=== PATIENT | female | born 1965 | race African-American/Black ===

== ENCOUNTER 2017-09-19 06:21 | Inpatient (IN) | payer BC ==
[2017-09-04 09:40] LABS: ABSOLUTE EOSINOPHILS 0.1 thou/uL (0.0-0.7); ABSOLUTE LYMPHOCYTES 1.8 thou/uL (0.8-5.3); ABSOLUTE MONOCYTES 0.4 thou/uL (0.0-1.2); ABSOLUTE NEUTROPHILS 3.2 thou/uL (1.6-8.1); BASOPHILS 0.8 %; EOSINOPHILS 1.8 %; HEMATOCRIT 36.8 % (37.0-47.0); HEMOGLOBIN 12.1 gm/dL (12.0-15.0); LYMPHOCYTES 32.3 %; MCH 27.3 pg (26.0-34.0); MCHC 32.9 g/dL (28.0-37.0); MCV 83.2 fL (80.0-100.0); MONOCYTES 7.3 %; MPV 9.7 fl. (7.2-11.1); NUCLEATED RBCS 0 /100WBC; PLATELET COUNT* 178 thou/uL (150-400); POLYS 57.8 %; RBC 4.43 mil/uL (4.20-5.00); RDW-CV 14.9 % (10.5-14.5); WBC 5.5 thou/uL (4.0-11.0)
[2017-09-04 09:52] LABS: APTT 24.5 Seconds (25.0-31.3); INR 1.1; PROTIME 10.3 Seconds (9.20-11.50)
[2017-09-04 09:55] LABS: ALBUMIN 3.6 g/dL (3.4-5.0); CALCIUM 9.5 mg/dL (8.5-10.1); CREATININE 0.8 mg/dL (0.6-1.3); POTASSIUM 3.6 mmol/L (3.5-5.1); TOTAL BILIRUBIN 0.4 mg/dL (<0.1-1.0); TOTAL PROTEIN 7.6 g/dL (6.4-8.2)
--- NOTE | 2017-09-04 11:26 | EKG ---
[place] [address] ELECTROCARDIOGRAM REPORT Name: BRENDON PRUITT Room: PRE IN [facility]#: [id number] Admission: Attend Phys: Rachel Felix Discharge: Date of : 67 Report #: [id number] THIS REPORT FOR: //name// [facility] Test Date: 2017-09-04 Test Time: 09:34:17 Pat Name: BRENDON PRUITT Department: Room: Gender: F Coconut Boiler: : 1965 Requested By: Chris Hicks Order Number: [id number] Reading : Luis Fernando Peterson Measurements Intervals [place] Rate: 70 P: 67 LA: 171 QRS: 66 QRSD: 89 T: 56 QT: 410 QTc: 443 Interpretive Statements Sinus rhythm Compared to ECG 12/25/2015 16:21:08 No significant changes Electronically Signed On 09-04-2017 11:25:54 CLAY ARTISAN by Luis Fernadno Peterson [email or web address] <ELECTRONICALLY SIGNED> By: Luis Fernando Peterson MD, [facility] 09/04/17 1125 0934 0934 Luis Fernando Peterson MD, [facility] /EPI
[~2017-09-19] VITALS: Ht 157.5 cm; Wt 77.1 kg
--- NOTE | ~2017-09-19 | OP ---
[address] [address] OPERATIVE REPORT Name: BRENDON PRUITT Room: [address]#: [id number] Admission: 09/19/17 Attend Phys: Rachel Felix Discharge: 09/21/17 Date of : 67 Report #: [id number] THIS REPORT FOR: //name// For operative report details, please see the post operative note. By: [address] [place], [place] [address]cal Records Staff BRANDIN /NAKIA
[~2017-09-19 06:21] MED LIST: ACETAMINOPHEN-1 EAC1 PO; ADULT LOW DOSE81 MG PO; AMITRIPTYLINE H10 M3 PO; AMLODIPINE BESYL5 MG PO; ANASTROZOLE1 MG PO; ANECREAM5 GM TP; BACTRIM DS TAB1 EACH PO; BACTROBAN CREAM30 G1 TOP; CATAPRES0.2 MG PO; CLONIDINE0.1 PO; DIOVAN HCT 1601 EAC1; DIOVAN320 MG PO; ELMIRON 100 MG100 M1 PO; HYDROCODONE-AP1 EAC6 PO; IBUPROFEN 800800 M1 PO; KEFLEX500 MG PO; LOPRESSOR50 PO; OXYCODONE HCL 55 MG PO; PERCOCET 5-3251 EACH PO; PREVACID30 M2 PO; UNICOMPLEX M TA1 TA1 PO; VALACYCLOVIR1000 MG PO; VITAMIN D1000 UNI1 PO; VITAMIN D3400 UNIT PO; XANAX 0.5 MG0.5 MG PO; XANAX1 MG PO; XARELTO10 MG PO; ZANAFLEX4 MG PO; ZOLPIDEM TARTRA10 MG PO
[2017-09-19 06:40] VITALS: BP 110/65
--- NOTE | 2017-09-19 10:50 | NUR ---
PT.IN SURGERY FOR LEFT TOTAL KNEE REPLACEMENT. HAD R KNEE REPLACEMENT IN JUN.OF THIS YEAR. SHE HAS A WALKER WITH FRONT WHEELS. SHE USED [facility] IN JUNE FOR P.T. REFERRAL CALLED INTO [facility]. FAXED FACE SHEET TO HER. USES [employer] ON [address] [phone]. SHE LIVES WITH HER AND CHILDREN. IS NORMALLY INDEPENDENT AT HOME. CM WILL FOLLOW FOR DISCHARGE.
--- NOTE | 2017-09-19 13:04 | NUR ---
PATIENT ARRIVED ON UNIT FROM PACU AT 1230. COMPLETED ASSESSMENT. ALERT AND ORIENTED X'S 4. VITAL SIGNS AND SPO2 STABLE. CAPNO IN PLACE. IV CLEAN, FLUIDS INFUSING. DRESSING OVER KNEE CLEAN, DRY, INTACT. TEDS, SCD'S, POLAR CARE, YELLOW SOCKS IN PLACE. TOLERATED DIET, NO NAUSEA AND VOMITING. PATIENT MUST HAVE BLOOD PRESSURE TAKEN FROM LEG DUE TO MASTECTOMY. PATIENT DENIES PAIN AT THIS MOMENT. VOIDED WITHOUT ISSUE. ORIENTED PATIENT TO ROOM, CALL LIGHT, AND TV. CALL LIGHT WITHIN REACH. WILL CONTINUE TO MONITOR.
--- NOTE | 2017-09-19 13:35 | NUR ---
RECIEVED O.T. EVAL AND TX ORDERS. WILL DEFER TO P.T. AND NURSING. PLEASE ORDER FURTHER O.T. SERVICES IF NEEDED.
[2017-09-19 14:28] VITALS: BP 123/63
[2017-09-19 15:56] VITALS: BP 133/67
--- NOTE | 2017-09-19 17:21 | NUR ---
AGREE WITH PREVIOUS ASSESSMENT. PAIN WELL CONTROLLED WITH PAIN MEDS. COMPLETED HOURLY ROUNDING. CALL LIGHT WITHIN REACH. WILL CONTINUE TO MONITOR.
[2017-09-19 21:00] VITALS: BP 151/79
[2017-09-19] MEDS ORDERED: XANAX 0.5 MG0.5 MG PO (22:01)
[2017-09-20] VITALS: BP 156/78
[2017-09-20 04:00] VITALS: BP 165/83
--- NOTE | 2017-09-20 05:25 | NUR ---
PATIENT ALERT AND ORIENTED. VITALS STABLE. ON 2L OF OXYGEN. LEFT KNEE DRESSING C/D/I. VOIDING PER BEDPAN, FREQUENTLY. ALTERNATING PO AND IV PAIN MEDICATION, SEE EMAR. POLAR PACK IN PLACE. HOURLY ROUNDS. BED ALARM IN USE. NURSING WILL CONTINUE TO MONITOR.
[2017-09-20 11:11] VITALS: BP 96/60
--- NOTE | 2017-09-20 11:18 | NUR ---
ORDERS NOTED FOR DC. DISCUSSED WITH JESSICA RUBIN AND MET WITH PT AND SPOUSE. PT STATES PAIN IS AN ISSUE TODAY AND UNSURE IF SHE WILL BE ABLE TO GO HOME. PT IS S/P LTKR. HAD RTKR DONE IN PAST. PT HAS WALKER AND TOILET RISER. HER AND 2 ADULT CHILDREN WILL BE HOME WITH HER AT DC TO ASSIST. PT TO GO HOME WITH CPM IN ROOM ALSO, SHE IS AWARE. SHE HAS CHOSEN [facility] FOR HH, CALLED AND FAXED ORDERS. [facility] WILL NEED CALLED IF PT DOESN'T DC TODAY AND WITH ACTUAL DC DATE. CALLED IN [place] TO [facility] [place] [address]. NO OTHER NEEDS ID'D
[2017-09-20 11:23] VITALS: BP 96/60
[2017-09-20 16:00] VITALS: BP 147/79
--- NOTE | 2017-09-20 17:46 | NUR ---
PATIENT IS ALERT AND ORIENTED. FAMILY AT BEDSIDE TODAY. PAIN IS NOT CONTROLLED WELL WITH ORAL PAIN MEDICATIONS, TOLERATED THERAPY OKAY, PATIENT IS DISCHARGED BUT NOT DOING WELL ENOUGH TO GO HOME. NO IV ACCESS, UP TO BATHROOM WITH WALKER AND GAIT REQUIRES A LOT OF EXTRA TIME. VITAL SIGNS HAVE BEEN STABLE TODAY ON ROOM AIR, BLOOD PRESSURE WAS LOW THIS MORNING SO HELD MORNING MEDICATIONS. FAMILY EDUCATED ON CALLIING FOR NURSING HELP TO GET UP, WAS HELPING WITH OUT GAIT BELT AND TRAINING. STATED UNDERSTANDING AND HAS CALLED FOR HELP SINCE. CALL LIGHT IN REACH WILL CONTIUNUE TO MONITOR.
[2017-09-20 23:56] VITALS: BP 142/70
--- NOTE | 2017-09-21 04:27 | NUR ---
PATIENT SLEPT WELL DURING THIS SHIFT. PT REQUESTED PAIN MEDICATION X2. PT WITH NO IV ACCESS AT THIS TIME PT IS DRINKING PLENTY OF LIQUIDS. PT UP WITH ASSIST TO BATHROOM. PT GETS OUT OF BED AND AMBULATES VERY SLOWLY. PT IS ON ROOM AIR. FREQUENTLY USED ITEMS AND CALL LIGHT WITHIN REACH. SIDERAILS UPX3. WILL CONTINUE TO MONITOR.
[2017-09-21 12:05] VITALS: BP 150/73
[2017-09-21] MEDS ORDERED: ELIQUIS2.5 MG PO (12:31)
[2017-09-21] MEDS ORDERED: OXYCODONE HCL 55 MG PO (12:32)
[2017-09-21] MEDS ORDERED: HYDROCODONE-AP1 EAC6 PO (12:32)
[2017-09-21] MEDS ORDERED: GABAPENTIN 100100 MG PO (12:34)
[2017-09-21 12:35] VITALS: BP 96/60
[2017-09-21 12:38] VITALS: BP 96/60
[2017-09-21 13:24] VITALS: BP 96/60
--- NOTE | 2017-09-21 13:50 | NUR ---
PATIENT IS ALERT AND ORIENTED TODAY VERY PLEASANT. PAIN THAT IS SOMEWHAT CONTROLLED BY ORAL PAIN MEDICATIONS. PATIENT IS BEING DISCHARGED TO HOME WITH HOME HEALTH. DISCHARGE INSTRUCTIONS GIVEN, PRESCRIPTIONS GIVEN AND QUESTIONS ANSWERED FOR PATIENT. BELONGINGS GATHERED UP AND TAKEN WITH PATIENT AND FAMILY. WILL MONITOR UNTIL PATIENT LEAVES.
[2017-09-21 14:03] VITALS: BP 96/60
[2017-09-21 16:42] VITALS: BP 96/60
--- NOTE | 2017-09-23 14:58 | S ---
[address] [address] SURGICAL PATH RPT PROCEDURE Name: BRENDON GRANADOS Room: [address]#: [id number] Admission: 09/19/17 Date of : 67 Discharge: 09/21/17 Report #: [id number] Path Case #: [id number] PATHOLOGY REPORT COLLECTION DATE: 09/19/2017 RECEIVED DATE: 09/19/2017 SUBMITTING PHYS: Dr. Chris Hicks OTHER PHYS: Dr. Ba Durand SPECIMEN(S) RECEIVED: A.Left knee bone and tissue * * * * * * * * * * * * FINAL DIAGNOSIS: Left knee bone and tissue, total knee replacement: - Benign synovium and benign bone and cartilage with severe degenerative changes. (CATALINA:sunita; 09/23/2017) PATHOLOGIST: Aldo Shelton M.D. REPORT ELECTRONICALLY SIGNED BY: Aldo Shelton M.D. DATE/TIME: 09/23/2017 14:58 * * * * * * * * * * * * GROSS PATHOLOGY: Received in formalin labeled "Brendon Granados left knee bone and tissue" is a specimen consisting of multiple portions of guevara-white bone and one portion of guevara-white cartilaginous soft tissue. The largest portion of bone measures 7.0 x 4.5 x 1.2 cm and has a concave cartilaginous-covered articular surface on one aspect. Scant slightly roughened possible eburnation is identified over two areas on the surface, measuring 1.7 x 1.5 cm and 2.8 x 2.0 cm. The opposite surface is smooth and consistent with a surgical resection margin. Additionally present within the container are nine additional fragments of guevara-white bone measuring in aggregate 13.5 x 6.5 x 0.8 cm and ranging from 1.5-4.4 cm in greatest dimension. These portions of bone have convex cartilaginous-covered articular surfaces on one aspect each, with the opposite aspects being smooth and consistent with a surgical resection margin. One of the portions has an adherent area of yellow-guevara lobulated fibroadipose tissue measuring 1.8 x 1.5 x 0.7 cm. Roughened areas are identified over approximately 50% of the cartilaginous surfaces. Two additional portions of bone are identified in the container measuring 1.6 and 2.2 cm in greatest dimension, which have multiple smooth surgical resection margins and no cartilaginous surfaces. The portion of cartilaginous soft tissue present within the container measures 3.[address] [place] [address] SURGICAL PATH RPT PROCEDURE Name: BRENDON GRANADOS Terry Room: [address]#: [id number] Admission: 09/19/17 Date of : 67 Discharge: 09/21/17 Report #: [id number] Path Case #: [id number] 1.5 x 0.5 cm. A wireless sales representative section of the largest portion of bone with area of possible eburnation, cartilaginous soft tissue, and fibroadipose tissue are submitted in cassette A1 following decalcification. [place] [place] CLINICAL HISTORY: Left knee degenerative joint disease, total knee replacement. INITIAL CPT CODE(S): A; 14548, 37782 Professional services performed by [facility] at [facility], [address] [place] [address]., [place] [address]. Technical services performed by [facility] at [address] [place] [address], [address], [place] [address]. [facility] [address] [place] [address] PHONE: [phone] DIRECTOR: Owen Pelayo M.D. * * * END OF REPORT * * *
== END 2017-09-21 14:07 | disposition home health service (06) | DRG 470 ==
LOC: M.TBA 06:21 → M.PRE 09:05 → M.ORTHSURG 11:48 → M.PRE 13:31 → M.3W 09-20 16:08
PROVIDERS: Orthopaedic Surgery; ADMIT Internal Medicine
PROC: 0SRD0J9 Replacement of Left Knee Joint with Synthetic Substitute, Cemented, Open Approach (ICD-10-PCS; principal; 2017-09-19)
PROC: 3E0T3BZ Introduction of Anesthetic Agent into Peripheral Nerves and Plexi, Percutaneous Approach (ICD-10-PCS; 2017-09-19)
DX: M17.12 Unilateral primary osteoarthritis, left knee (principal); M21.062 Valgus deformity, not elsewhere classified, left knee; I10 Essential (primary) hypertension; Z96.651 Presence of right artificial knee joint; Z90.11 Acquired absence of right breast and nipple

== ENCOUNTER 2019-01-08 18:00 | Emergency (ER) | payer BC ==
[~2019-01-08] VITALS: Ht 152.4 cm; Wt 77.1 kg
[~2019-01-08 18:00] MED LIST changes: +ELIQUIS2.5 MG PO; +GABAPENTIN 100100 MG PO
[2019-01-08] MEDS ORDERED: FLEXERIL PO (20:05)
[2019-01-08] MEDS ORDERED: MEDROLDOSEPACK PO (20:14)
[2019-01-08 20:20] VITALS: BP 155/78
== END 2019-01-08 20:21 | disposition home or self-care (01) ==
LOC: M.ERS 18:00
DX: S39.012A Strain of muscle, fascia and tendon of lower back, initial encounter (principal); S16.1XXA Strain of muscle, fascia and tendon at neck level, initial encounter; M51.86 Other intervertebral disc disorders, lumbar region; I10 Essential (primary) hypertension; N30.10 Interstitial cystitis (chronic) without hematuria; Z90.11 Acquired absence of right breast and nipple; Z98.890 Other specified postprocedural states; V89.2XXA Person injured in unspecified motor-vehicle accident, traffic, initial encounter; Y93.89 Activity, other specified; Y92.89 Other specified places as the place of occurrence of the external cause; Y99.8 Other external cause status

== ENCOUNTER → 2019-01-29 | Outpatient (CLI) | payer BC ==
[~2019-01-29] MED LIST changes: +FLEXERIL PO; +MEDROLDOSEPACK PO
[2019-01-29 08:48] LABS: CALCIUM 9.2 mg/dL (8.5-10.1); CREATININE 0.8 mg/dL (0.6-1.3); POTASSIUM 3.3 mmol/L (3.5-5.1)
== END ==
LOC: M.LAB 07:30 → M.CT 08:30
PROVIDERS: Family Medicine
DX: M50.321 Other cervical disc degeneration at C4-C5 level (principal); R51 Headache

== ENCOUNTER 2020-11-19 14:24 | Emergency (ER) | payer BC, OTHER ==
[~2020-11-19] VITALS: Ht 154.9 cm; Wt 73.5 kg
[2020-11-19 16:08] LABS: ABSOLUTE BASOPHILS 0.1 thou/uL (0.0-0.2); ABSOLUTE EOSINOPHILS 0.1 thou/uL (0.0-0.7); ABSOLUTE MONOCYTES 0.4 thou/uL (0.0-1.2); ABSOLUTE NEUTROPHILS 2.9 thou/uL (1.6-8.1); BASOPHILS 1.1 %; EOSINOPHILS 2.7 %; HEMATOCRIT 40.1 % (37.0-47.0); HEMOGLOBIN 13.7 gm/dL (12.0-15.0); LYMPHOCYTES 36.3 %; MCH 27.7 pg (26.0-34.0); MCV 81.2 fL (80.0-100.0); MONOCYTES 7.2 %; MPV 9.4 fl. (7.2-11.1); NUCLEATED RBCS 0 /100WBC; PLATELET COUNT* 205 thou/uL (150-400); POLYS 52.7 %; RBC 4.94 mil/uL (4.20-5.00); RDW-CV 14.3 % (10.5-14.5); WBC 5.5 thou/uL (4.0-11.0)
[2020-11-19 16:18] LABS: APTT 23.4 Seconds (25.0-31.3)
[2020-11-19 16:45] VITALS: BP 151/76
[2020-11-19] MEDS ORDERED: AMOXIL 875 MG875 M1 PO (16:46)
[2020-11-19] MEDS ORDERED: PERIDEX 0.12%473 M1 SWISH&SPIT (16:46)
[2020-11-19] MEDS ORDERED: LIDOCAINE VISC100 ML SWISH&SPIT (16:52)
== END 2020-11-19 16:45 | disposition home or self-care (01) ==
LOC: M.ERS 14:24
PROVIDERS: Emergency Medicine Emergency Medical Services
DX: K12.0 Recurrent oral aphthae (principal); K08.89 Other specified disorders of teeth and supporting structures; I10 Essential (primary) hypertension; Z90.11 Acquired absence of right breast and nipple; Z98.890 Other specified postprocedural states